=== PATIENT | male | born 1990 | race Caucasian/White ===

== ENCOUNTER 2017-09-22 12:13 | Emergency (ER) | payer SELFPAY ==
[~2017-09-22] VITALS: Ht 182.9 cm; Wt 97.2 kg
[~2017-09-22 12:13] MED LIST: AUGMENTIN875 MG PO; CENTRUM MULTIV1 EACH PO; CLEOCIN PA75 MG/5 ML PO; CLINDAGEL PO; CONCERTA18 MG PO; CONCERTA27 MG PO; CONCERTA36 MG PO; DYNACIN100 M1 PO; FLEXERIL5 MG PO; FLONASE16 GM NS; HYDROXYZINE HCL25 MG PO; INDERAL10 MG PO; LIDOCAINE20 MG/1 M5 PO; LITHIUM CARBON300 M1 PO; LITHIUM CARBON300 MG PO; LITHIUM CARBON600 MG PO; LOPID600 MG PO; NAPROSYN500 MG PO; NASACORT AQ16.5 GM NS; NOHOMEMEDS; PROPRANOLOL HCL10 MG PO; RISPERDAL1 MG PO; TETRACYCLINE H500 MG PO; ULTRAM50 MG PO; ZITHROMAX Z-PA250 MG PO; [UNRECOGNIZED DRUG - CODE] DT
[2017-09-22 12:38] VITALS: BP 135/72
[2017-09-22] MEDS ORDERED: ERYTHROMYC1 APPLICAT BOTH EYES (14:22)
[2017-09-22] MEDS ORDERED: IBUPROFEN800 MG PO (14:22)
== END 2017-09-22 14:44 | disposition home or self-care (01) ==
LOC: EME 12:13
DX: H10.89 Other conjunctivitis (principal); F17.200 Nicotine dependence, unspecified, uncomplicated; Z71.6 Tobacco abuse counseling; F90.9 Attention-deficit hyperactivity disorder, unspecified type; F31.9 Bipolar disorder, unspecified; Z88.0 Allergy status to penicillin; Z88.1 Allergy status to other antibiotic agents
CPT/HCPCS: 99281; 99284

== ENCOUNTER 2017-11-03 09:30 | Emergency (ER) | payer OTHER ==
[~2017-11-03] VITALS: Ht 185.4 cm; Wt 96.3 kg
[~2017-11-03 09:30] MED LIST changes: +ERYTHROMYC1 APPLICAT BOTH EYES; +IBUPROFEN800 MG PO
[2017-11-03] MEDS ORDERED: VALIUM5 MG PO (13:34)
[2017-11-03] MEDS ORDERED: PREDNISONE10 MG PO (13:34)
[2017-11-03] MEDS ORDERED: ULTRAM50 MG PO (13:34)
[2017-11-03 14:03] VITALS: BP 137/74
== END 2017-11-03 14:04 | disposition home or self-care (01) ==
LOC: EME 09:30
DX: M54.5 Low back pain (principal); F17.200 Nicotine dependence, unspecified, uncomplicated; F90.9 Attention-deficit hyperactivity disorder, unspecified type; Z88.0 Allergy status to penicillin; Z88.1 Allergy status to other antibiotic agents
CPT/HCPCS: 99281; 99284